=== PATIENT | female | born 1990 | race African-American/Black ===

== ENCOUNTER 2017-07-23 14:45 | Emergency (ER) | payer SELFPAY ==
[~2017-07-23] VITALS: Ht 175.3 cm; Wt 65.0 kg
[2017-07-23 14:48] VITALS: BP 184/92; PULSE 64; RESP 14; TEMP 98.5; O2SAT 97
--- NOTE | 2017-07-23 17:15 | PD ---
HPI Chief Complaint: Manager It Security Problem/Complaint Time Seen by Provider: 16:30 Travel History International Travel<30 days: No Contact w/Intl Traveler<30days: No Traveled to known affect area: No History of Present Illness HPI 27-year-old female with multiple medical complaints presents to emergency department with burning with urination, vaginal itching and discharge for 3 months. Patient states that she has a nonbloody white vaginal discharge without odor. Last menstrual period 2 weeks ago. She was sexually active 3 months ago and suspects that this is why she has her symptoms now. Patient describes cramps in her pelvic area that increases with her urination. Patient is also complaining of low back pain for 8 months. Patient denies trauma, fever , chills, loss of bowel or bladder function, saddle anesthesia, IV drug use. 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 States pain is constant without radiation and is mild and achy. Patient has not taken any medication for her back pain. Denies nausea, vomiting or diarrhea. Patient states her appetite is normal. Patient has not seen a primary care physician. [facility] Past Medical History Medical History: Denies Significant Hx Diminished Hearing: No ?: Not LMP: 07/2017 : 2 Para: 2 Past Surgical History Surgical History: No Previous Surgery Social History Alcohol Use: No Tobacco Use: No Substance Use: No Allergies-Medications (Allergen,Severity, Reaction): Coded Allergies: No Known Allergies (Unverified , 07/23/17) Reported Meds & Prescriptions Reported Meds & Active Scripts Active No Active Prescriptions or Reported Medications Review of Systems Except as stated in HPI: all other systems reviewed are Neg Physical Exam Narrative GENERAL: Well-nourished, well-developed patient. SKIN: Focused skin assessment warm/dry. HEAD: Normocephalic. EYES: No scleral icterus. No injection or drainage. NECK: Supple, trachea midline. No JVD or lymphadenopathy. CARDIOVASCULAR: Regular rate and rhythm without murmurs, gallops, or rubs. RESPIRATORY: Breath sounds equal bilaterally. No accessory muscle use. GASTROINTESTINAL: Abdomen soft, non-tender, nondistended. Mild TTP to mid pelvic region MUSCULOSKELETAL: No cyanosis, or edema. BACK: Nontender without obvious deformity. No CVA tenderness. Data Data Last Documented VS Vital Signs Date Time Temp Pulse Resp B/P (MAP) Pulse Ox O2 Delivery O2 Flow Rate FiO2 07/23/17 18:23 07/23/17 14:48 98.5 64 14 97 Orders Orders Ed Urine Pregnancytest Poc (07/23/17 17:08) [facility] Medical Decision Making Medical Screen Exam Complete: Yes Emergency Medical Condition: Yes Differential Diagnosis Urinary tract infection, chlamydia, gonorrhea, bacterial vaginosis Narrative Course 27-year-old female presents to emergency department with burning with urination, vaginal itching and discharge for 3 months. Patient states that she has a white discharge without odor. Last menstrual period 2 weeks ago. She was sexually active 3 months ago and suspects that this is why she has her symptoms now. Patient describes cramps in her pelvic area that increases with her urination. Patient is also complaining of low back pain for 8 months. Patient denies trauma, fever, chills, loss of bowel or bladder function, saddle anesthesia, IV drug use. 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 States pain is constant without radiation and is mild and achy. Patient has not taken any medication for her back pain. Denies nausea, vomiting or diarrhea. Patient states her appetite is normal. Vital signs stable Urine pending. Patient refused exam. Advised the risks versus benefits. Patient is competent to make this decision and understands the risks. Patient wanted to leave AMA. Advised patient against doing so she likely has a urinary tract infection. I offered multiple treatment options and patient agreed to stay. Approximately 20 minutes later, patient walked out of her room and stated that she wanted to leave AMA. She was advised the risks versus benefits again. I strongly advised patient to follow up with her primary care physician. Strongly advised patient to return to the emergency department for worsening or persistent symptoms. Diagnosis Primary Impression: Left against medical advice Referrals: [facility] No Active Prescriptions or Reported Meds Disposition: 07 AGAINST MEDICAL ADVICE Condition: Stable Mayi Fernando Jul 23, 2017 17:15
== END 2017-07-23 18:00 | disposition left against medical advice (07) ==
LOC: NEPD 14:45
DX: N89.8 Other specified noninflammatory disorders of vagina (principal); M54.5 Low back pain
CPT/HCPCS: 99282